=== PATIENT | female | born 1990 | race Caucasian/White ===

== ENCOUNTER 2022-06-18 08:14 | Emergency (ER) | payer BC, SELFPAY ==
[2022-06-18 08:20] VITALS: BP 130/74; PULSE 98; RESP 20; TEMP 37.6; O2SAT 97; BMI 33.6
--- NOTE | 2022-06-18 08:28 | EXP.UTC ---
Discharge Plan Disposition Patient Disposition: Home, Self-Care Condition: Good Prescriptions Prescriptions: New methylprednisolone 4 mg Tablets,Dose Pack 4 mg PO DIRECTED Qty: 21 0RF mvomuvqnigcuivw-fequrmbpr-MC [Bromfed DM] 2-30-10 mg/5 mL Syrup 5 ml PO Q6H PRN (Reason: Cough) Qty: 240 0RF ondansetron 4 mg Tablet,Disintegrating 4 mg PO Q8H PRN (Reason: Nausea) Qty: 12 0RF amoxicillin-pot clavulanate 875-125 mg Tablet 1 tab PO Q12H Qty: 20 0RF No Action amoxicillin 500 mg capsule 500 mg PO Q12H 10 Days Qty: 20 0RF escitalopram oxalate [Lexapro] 10 mg tablet 10 mg PO DAILY Referrals Follow up/Referrals: Nicola Godinez MD [Primary Care Provider] - See instructions Activity Restrictions/Add. Instructions Additional Instructions/Restrictions: Drink plenty of fluids. Take tylenol or ibuprofen for pain or fever. Take the medications as directed. Follow up with your regular doctor. GO TO THE ER FOR ANY WORSENING SYMPTOMS Clinical Impressions Clinical Impression: Strep throat Discharge ED Provider: Devyn Abernathy [facility] General Stated complaint: Sore throat Time Seen by Provider: 06/18/22 08:27 History of Present Illness Provider Complaint: She states that for the past 2 days she has had a sore throat, fever, chills, and malaise. She states that her throat is very sore. She denies shortness of breath and significant congestion. Related Data Home Medications Medication Instructions Recorded Confirmed escitalopram oxalate 10 mg tablet 10 mg PO DAILY 03/31/19 03/31/19 (Lexapro) Previous Rx's Medication Instructions Recorded amoxicillin 500 mg capsule 500 mg PO Q12H strep pharyngitis 03/31/19 10 days #20 caps amoxicillin 875 mg-potassium 1 tab PO Q12H #20 tabs 06/18/22 clavulanate 125 mg tablet smctjudqepnmfwb-worxhnrrpfsxekh-CF 5 ml PO Q6H PRN Cough #240 mL 06/18/22 2 mg-30 mg-10 mg/5 mL oral syrup (Bromfed DM) methylprednisolone 4 mg tablets in 4 mg PO DIRECTED #21 tabs 06/18/22 a dose pack ondansetron 4 mg disintegrating 4 mg PO Q8H PRN Nausea #12 tabs 06/18/22 tablet Allergies Allergy/AdvReac Type Severity Reaction Status Date / Time No Known Allergies Allergy Verified 01/17/18 15:47 [facility] Disclaimer: The information contained in this section may have been updated after the patient was seen, as this information can be updated by other users. Surgical History History of section Social History Smoking Status: Never smoker alcohol intake: current current occupational status: employed Travel in the last 8 weeks: None ROS Obtained: Yes All systems reviewed & no additional complaints except as documented Constitutional Constitutional: Reports chills and Reports fever(s) Eyes Eyes: Denies eye discharge ENT Ears, Nose, Mouth, and Throat: Reports as per HPI Cardiovascular Cardiovascular: Denies chest pain Respiratory Respiratory: Denies chest congestion and Reports cough Gastrointestinal Gastrointestingal: Reports nausea; Denies abdominal pain, constipation, cramping, diarrhea or vomiting Musculoskeletal Musculoskeletal: Denies arthralgias Integumentary/Breasts Skin/Breast: Denies rash Neurologic Neurologic: Denies paresthesias Physical Exam General General appearance: alert and in no apparent distress Head Head exam: atraumatic, normocephalic and normal inspection Eye Eye exam: Present normal appearance, PERRL and EOMI ENT ENT exam: Present normal exam, normal oropharynx, mucous membranes moist, TM's normal bilaterally and normal external ear exam Neck Neck exam: Present normal inspection, full ROM and trachea midline; Absent meningismus or lymphadenopathy Chest Chest inspection: Present normal inspection and symmetric chest wall rise; Absent tenderness Respiratory Respiratory exam:
[2022-06-18 08:33] LABS: UTC Strep Screen (Rapid) Positive (Negative)
[2022-06-18 08:34] VITALS: BP 130/74; PULSE 98; RESP 20; TEMP 37.6; O2SAT 97
== END 2022-06-18 09:10 | disposition home or self-care (01) ==
PROVIDERS: Emergency Provider Nurse Practitioner Family; PCP Internal Medicine Adolescent Medicine
DX: J02.0 Streptococcal pharyngitis (principal)
CPT/HCPCS: 87880; 99212; 99213; G0463

== ENCOUNTER → 2023-02-23 12:58 | Outpatient (CLI) | payer BC, SELFPAY | LOC: LAB.DROPOF 12:58 | PROVIDERS: PCP Physician Assistant; Visit Provider Physician Assistant | DX: N30.01 Acute cystitis with hematuria (principal); B96.29 Other Escherichia coli [E. coli] as the cause of diseases classified elsewhere | CPT/HCPCS: 87086; 87088; 87186 ==

== ENCOUNTER 2024-03-18 13:16 | Outpatient (CLI) | payer BC, SELFPAY ==
--- NOTE | 2024-03-18 13:22 | XR_ITS ---
FINAL REPORT TECHNIQUE: Chest PA & Lateral CLINICAL HISTORY: Shortness of breath, STATE COMPARISON: None FINDINGS: 2 views of the chest were performed. The heart size is normal. The mediastinum is within normal limits. There is no acute cardiopulmonary process. There are no pleural effusions. There is no pneumothorax. The bony thorax appears intact. IMPRESSION: No acute cardiopulmonary process. Reviewed, Interpreted and Dictated by Mao Johnson MD Transcribed by Dana Schaefer Authenticated and [facility]
[2024-03-18 13:51] LABS: Basophils % 0.4 % (0.1-2.0); Eosinophils # 0.1 K/mm3 (0.0-0.4); Eosinophils % 0.8 % (0.1-12.0); Hematocrit 30.4 % (37.0-47.0); Hemoglobin 9.5 g/dL (12.2-16.2); Lymphocytes # 1.2 K/mm3 (0.7-4.5); Mean Corpuscular HGB Conc 31.1 g/dL (31.8-35.4); Mean Corpuscular Hemoglobin 29.2 pg (27.0-31.2); Mean Corpuscular Volume 93.9 fl (81-99); Mean Platelet Volume 9.9 fl (7.4-10.4); Monocytes # 0.3 K/mm3 (0.1-1.0); Monocytes % 5.4 % (1.7-9.3); Neutrophils # 4.6 K/mm3 (1.8-7.8); Neutrophils % 74.4 % (37.0-80.0); Platelet Count 199 K/mm3 (142-424); Red Blood Count 3.24 M/mm3 (4.20-5.40); Red Cell Distribution Width 15.7 % (11.5-17.5); White Blood Count 6.1 K/mm3 (4.8-10.8)
[2024-03-18 13:59] LABS: Alanine Aminotransferase 25 U/L (12-78); Albumin Level 2.9 g/dl (3.5-5.0); Albumin/Globulin Ratio 1.1 (1.1-1.8); Alkaline Phosphatase 91 U/L (38-126); Anion Gap 5.8 mEq/L (5-15); Aspartate Amino Transferase 33 U/L (14-36); Bilirubin,Total 0.4 mg/dl (0.2-1.3); Blood Urea Nitrogen 15 mg/dl (7-17); Calcium 8.5 mg/dl (8.4-10.2); Carbon Dioxide 27 mmol/L (22.0-30.0); Chloride 108 mmol/L (98-107); Estimated Glomerular Filt Rate 44 ml/min (>60); GFR (African American) 53 ML/MIN (>60); Globulin 2.7 g/dL (1.3-3.2); Glucose 76 mg/dl (74-100); Potassium 3.8 mmoL/L (3.5-5.1); Sodium 137 mmol/L (136-145); Total Protein,Serum 5.6 g/dl (6.3-8.2)
[2024-03-18 14:04] LABS: D-Dimer 1.97 ug/mL (0.0-0.5)
[2024-03-18 14:09] LABS: NT Pro Brain Natriuretic Pep. 887 pg/mL (0-125)
== END 2024-03-18 23:59 | disposition home or self-care (01) ==
LOC: RAD 13:18
PROVIDERS: PCP Nurse Practitioner Family; Visit Provider Nurse Practitioner Family
DX: Z39.2 Encounter for routine postpartum follow-up (principal); R06.02 Shortness of breath
CPT/HCPCS: 36415; 71046; 80053; 83880; 85025; 85378

== ENCOUNTER 2025-04-04 09:37 | Outpatient (CLI) | payer BC, SELFPAY ==
--- OUTSIDE RECORDS SUMMARY | 2025-04-04 09:41 | XMS_ITS | Clinical Summary ---
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 Phone Marylou Graves SENIOR CARE PROVIDER Primary Care Provider [phone] Allergies No known active allergies Medications No known medications Active Problems Problem Noted Date Diagnosed Date Preeclampsia in period 03/19/2024 Resolved Problems Problem Noted Date Diagnosed Date Resolved Date Previous delivery a ffecting 03/07/2024 03/28/2024 08/10/2023 03/20/2024 Overview (02/01/2024): 2 prev c/s- repeat SCHEDULED EFW 33 wks 55%ile Previous section 06/14/2018 Immunizations Immunization Administration Dates Next Due Fluzone (or Fluarix & Flulaval for VFC) >6mos Tdap 02/01/2024 Family History Medical History Relation Name Comments No Known Problems Father Breast cancer Mother Krystal Wilcox Relation Name Status Comments Father Alive Mother Krystal Wilcox Alive Social History Tobacco Use Types Packs/Day Years Used Date Smoking Tobacco: Never Passive Smoke Exposure: Never Smokeless Tobacco: Never Tobacco Cessation:Counseling Given: Not Answered Alcohol Use Standard Drinks/Week Comments No 0 (1 standard drink = 0.6 oz pur e alcohol) [facility] Utilities Answer Date Recorded In the past 12 months has th e electric, gas, oil, or water company threatened to shut off services in your home? No 03/18/2024 AUDIT-C Answer Date Recorded Q1: How often do you have a drink containing alcohol? Never 03/18/2024 Q2: How many drinks containi ng alcohol do you have on a typical day when you are drinking? Patient does not drink Q3: How often do you have si x or more drinks on one occasion? Never 03/18/2024 Overall Financial Resource Strain (CARDIA) Answe r Date Recorded How hard is it for you to pa y for the very basics like food, housing, medical care, and heating? Not hard at all 03/18/2024 [facility] - Occupational Stress Questionnaire Answer Date Recorded Do you feel stress - tense, restless, nervous, or anxious, or unable to sleep at night because your mind is troubled all the time - these days? Not at all 03/18/2024 Exercise Vital Sign Answer Date Recorde d On average, how many days pe r week do you engage in moderate to strenuous exercise (like a brisk walk)? 0 days 03/18/2024 On average, how many minutes do you engage in exercise at this level? 0 min 03/18/2024 Hunger Vital Sign Answer Date Recorded Within the past 12 months, y ou worried that your food would run out before you got the money to buy more. Never true 03/18/20 24 Within the past 12 months, t he food you bought just didn't last and you didn't have money to get more. Never true 03/18/2024 PRAPARE - Transportation Answer Date Re corded In the past 12 months, has l ack of transportation kept you from medical appointments or from getting medications? No 06/2023 In the past 12 months, has l ack of transportation kept you from meetings, work, or from getting things needed for daily living? No 03/18/2024 Fletcher Depression Scale Answer Date Recorded Fletcher Depression Scale Total 6 04/24/2024 The thought of harming myself has occurred to me . Never 04/24/2024 Abuse Screen Answer Date Recorded Feels Unsafe at Home or Work/School no 03/18/2024 Feels Threatened by Someone no 06/2023 Does Anyone Try to Keep You From Having Contact with Others or Doing Things Outside Your Home? no 03/18/2024 Physical Signs of Abuse Present no 03/18/2024 Housing Stability Answer Date Recorded Current Living Arrangements home 06/2023 Potentially Unsafe Housing Conditions none 03/18/2024 Family and Community Support Answer Neville e Recorded If for any reason you need h elp with day-to-day activities such as bathing, preparing meals, shopping, managing finances, etc., do you get the help you need? I don't need any help 03/18/2024 How often do you feel lonely or isolated from those around you? Never 03/18/2024 Employment Answer Date Recorded Do you want help finding or keeping work or a job? I do not need or want help 03/18/2024 Disabilities Answer Date Recorded Difficulty Concentrating, Remembering or Making Decisions no 03/18/2024 Difficulty Managing Errands Independently no 03/18/2024 Education Answer Date Recorded Do you want help with school or training? For example, starting or completing job training or getting a high school diploma, GED or equivalent No 03/18/2024 Preferred Language Malian 03/18/2024 PHQ-2 Answer Date Recorded Retired PHQ-9: Brief Depression Severity Measure Score 0 03/18/2024 Comments No Sex and Gender Information Value Date Recorded Sex Assigned at Not on file Legal Sex Female 1:45 PM EDT Gender Identity Not on file Sexual Orientation Not on file Last Filed Vital Signs Vital Sign Reading Time Taken Comments Blood Pressure 114/70 04/24/2024 2:40 PM EST Pulse 67 03/20/2024 12:09 PM EDT Temperature 37.2 C (99 F) 03/20/2024 12:09 PM EDT Respiratory Rate 16 03/20/2024 12:0 9 PM EDT Oxygen Saturation 98% 03/19/2024 6:26 PM EDT Inhaled Oxygen Concentration - - Weight 83.8 kg (184 lb 12.8 oz) 04/24/2024 2:40 PM EST Height 160 cm (5' 3 ) 04/24/2024 2:40 PM EST Body Mass Index 32.74 04/24/2024 2:40 PM EST Plan of Treatment Upcoming Encounters Date Type Department Care Team (Late st Contact Info) Description 04/28/2025 3:30 PM EST Office Visit [facility] [address] [facility] [address] [place] [address] Carrie Diaz MD [address] [facility] [address] [place] [address] Health Maintenance Due Date Last Done Comments ANNUAL PHYSICAL 06/04/2018 Annual Gynecologic Pelvic an d Breast Exam 01/12/2024 01/10/2023 INFLUENZA VACCINE 01/16/2025 04/07/2020 PAP SMEAR 04/24/2027 04/24/2024, 11/18/2020, 10/29/2019 TDAP/TD VACCINES (2 - Td or Tdap) 01/31/2034 02/01/2024 HEPATITIS C SCREENING Completed 08/10/2023 , 11/01/2017 Pneumococcal Vaccine 0-49 Aged Out No longer eligible based on patient's age to complete this topic Procedures Procedure Name Priority Date/Time Associated Diagnosis Comments LIQUID-BASED PAP SMEAR WITH HPV GENOTYPING REGARDLESS OF INTERPRETATION, [facility] (FROY,COR,[facility]AD) Routine 04/24/2024 4:27 PM EST Screening for cervical cancer follow-up OBSTETRIC PANEL Routine 08/10/2023 9:58 AM EST care in first trimester from Last 3 Months or Most Recently Relevant to Health Maintenance Results * LIQUID-BASED PAP SMEAR WITH HPV GENOTYPING REGARDLESS OF INTERPRETATION (FROY,COR,MAD) (04/24/2024 4:27 PM EST) Pathologist [facility] Reference Lab Report [facility] [address] [place] [address] or [phone] Len Baxter M.D., Sheet Rock Taper Helper PATIENT NAME [facility]ATORY NO[facility] 127 MARIKA AYE HollisLee [id number] AGE SEX SSN CLIENT REF # [id number] 33 1990 F [id number] [address] [facility] [address] REQUESTING Sandy [place] [address] CARRIE DIAZ DATE COLLECTED DATE RECEIVED DATE REPORTED 04/24/2024 04/24/202404/25/2024 ThinPrep Pap with Cytyc Imaging DIAGNOSIS: Negative for intraepithelial lesion or malignancy Multiple factors can influence accuracy of Pap tests; therefore, screening at regular intervals is necessary for early cancer detection. SPECIMEN ADEQUACY: SATISFACTORY FOR EVALUATION Transformation zone is absent or insufficient. Partially obscuring blood is present. Sparse cellularity, minimal number of squamous cells available for evaluation. SOURCE OF SPECIMEN: CERVICAL/ENDOCERV ICAL SLIDES: 1 CLINICAL HISTORY: A Routine Tubal ligation Screening for cervical cancer follow-up HPV HR-HPV POOL: Negative The Aptima HPV assay is an in vitro nucleic acid amplification test for the qualitative detection of E6/E7 viral messenger RNA from 14 high risk types of HPV in cervical specimens. The high risk HPV types detected include: 16, 18, 31, 33, 35, 39, 45, 51, 52, 56, 58, 59, 66, 68 SALES ASSOCIATE FISHING: JUAN MANUEL CORTEZ (ASCP) CPT CODES: 53894, 04178 04/25/2024 11:28 AM EST [facility] ThinPrep Vial Cervix uteri structure / Unknown Collection / Unknown 04/24/2024 4:27 PM EST 04/24/2024 4:27 PM EST us Carrie Diaz MD PATHOLOGY/CYTOLOGY ORDERABLES Fi nal Result [facility]
[address] [place] [address], * Obstetric Panel (08/10/2023 9:58 AM EST) Hepatitis B Surface Ag Negative Negative [facility] Hep C Virus Ab Non Reactive Non Reactive [facility] Comment: HCV antibody alone does not differentiate between previously resolved infection and active infection. Equivocal and Reactive HCV antibody results should be followed up with an HCV RNA test to support the diagnosis of active HCV infection. RPR Non Reactive Non Reactive [facility] Rubella Antibodies, IgG 1.94 Immune >0.99 index [facility] Comment: Non-immune <0.90 Equivocal 0.90 - 0.99 Immune >0.99 ABO Type A [facility] Rh Factor Positive [facility] Comment: Please note: Prior records for this patient's ABO / Rh type are not available for additional verification. Antibody Screen Negative Negative [facility] WBC 8.5 3.4 - 10.8 x10E3/uL [facility] RBC 3.80 3.77 - 5.28 x10E6/uL [facility] Hemoglobin 11.9 11.1 - 15.9 g/dL [facility] Hematocrit 35.6 34.0 - 46.6 % [facility] MCV 94 79 - 97 fL [facility] MCH 31.3 26.6 - 33.0 pg [facility] MCHC 33.4 31.5 - 35.7 g/dL [facility] RDW 11.7 11.7 - 15.4 % [facility] Platelets 194 150 - 450 x10E3/uL [facility] Neutrophil Rel % 80 Not Estab. % [facility] Lymphocyte Rel % 13 Not Estab. % [facility] Monocyte Rel % 7 Not Estab. % [facility] Eosinophil Rel % 0 Not Estab. % [facility] Basophil Rel % 0 Not Estab. % [facility] Neutrophils Absolute 6.7 1.4 - 7.0 x10E3/uL [facility] Lymphocytes Absolute 1.1 0.7 - 3.1 x10E3/uL [facility] Monocytes Absolute 0.6 0.1 - 0.9 x10E3/uL [facility] Eosinophils Absolute 0.0 0.0 - 0.4 x10E3/uL [facility] Basophils Absolute 0.0 0.0 - 0.2 x10E3/uL [facility] Immature Granulocyte Rel % 0 Not Estab. % [facility] Immature Grans Absolute 0.0 0.0 - 0.1 x10E3/uL [facility] Blood 08/10/2023 9:58 AM EST 08/10/2023 Comment:[facility] - 08/11/2023 7:11 AM EST Performed at: 01 - [facility] [id number] Medical Imaging Technologist: Curt Jones PhD, Phone: [phone] us Carrie Diaz MD LAB BLOOD ORDERABLES Final Resul t [facility] [address] [place] [address], [place] [phone] [facility] [address] [place] [address], [place] [phone] from Last 3 Months or Most Recently Relevant to Health Maintenance Insurance [facility] [employer] [facility] [facility] [address] EMPLOYEE Advance Directives * CPR (Attempt to Resuscitate) (Latest Code Status on File) Date Activated Date Inactivated Comments 03/19/2024 2:27 PM 03/20/2024 3:04 PM Question Answer Comments Code Status (Patient has no pulse and is not breathing): CPR (Attempt to Resuscitate) Medical Interventions (Patie nt has pulse or is breathing): Full Support Level Of Support Discussed With: Patient * CPR (Attempt to Resuscitate) Date Activated Date Inactivated Comments 03/14/2024 3:46 PM 03/16/2024 3:42 PM Question Answer Comments Code Status (Patient has no pulse and is not breathing): CPR (Attempt to Resuscitate) Medical Interventions (Patie nt has pulse or is breathing): Full * CPR (Attempt to Resuscitate) Date Activated Date Inactivated Comments 03/14/2024 10:27 AM 03/14/2024 3:46 PM Question Answer Comments Code Status (Patient has no pulse and is not breathing): CPR (Attempt to Resuscitate) Medical Interventions (Patie nt has pulse or is breathing): Full Support Level Of Support Discussed With: Patient * CPR (Attempt to Resuscitate) Date Activated Date Inactivated Comments 06/14/2018 2:16 PM 06/17/2018 3:10 PM Question Answer Comments Code Status (Patient has no pulse and is not breathing): CPR (Attempt to Resuscitate) Medical Interventions (Patie nt has pulse or is breathing): Full * CPR (Attempt to Resuscitate) Date Activated Date Inactivated Comments 06/14/2018 8:01 AM 06/14/2018 2:16 PM Question Answer Comments Code Status (Patient has no pulse and is not breathing): CPR (Attempt to Resuscitate) Medical Interventions (Patie nt has pulse or is breathing): Full Care 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
[2025-04-04 10:03] LABS: Hematocrit 40.4 % (37.0-47.0); Hemoglobin 13.2 g/dL (12.2-16.2); Immature Granulocytes % 0.2 %; Mean Corpuscular HGB Conc 32.7 g/dL (31.8-35.4); Mean Corpuscular Hemoglobin 29.5 pg (27.0-31.2); Mean Corpuscular Volume 90.4 fl (81-99); Nucleated Red Blood Cells % 0 %; Platelet Count 176 K/mm3 (142-424); Red Blood Count 4.47 M/mm3 (4.20-5.40); Red Cell Distribution Width-SD 41.6 fL; White Blood Count 4.9 K/mm3 (4.8-10.8)
[2025-04-04 11:01] LABS: Alanine Aminotransferase 19 U/L (12-78); Albumin Level 4.7 g/dl (3.5-5.0); Albumin/Globulin Ratio 2.0 (1.1-1.8); Alkaline Phosphatase 52 U/L (38-126); Anion Gap 16.7 mEq/L (5-15); Aspartate Amino Transferase 19 U/L (14-36); Bilirubin,Total 0.9 mg/dl (0.2-1.3); Blood Urea Nitrogen 13 mg/dl (7-17); Calcium 9.4 mg/dl (8.4-10.2); Carbon Dioxide 24 mmol/L (22.0-30.0); Chloride 103 mmol/L (98-107); Cholesterol 164 mg/dl (140-200); Creatinine,Serum 0.80 mg/dl (0.52-1.04); Estimated Glomerular Filt Rate 83 ml/min (>60); GFR (African American) 101 ML/MIN (>60); Globulin 2.3 g/dL (1.3-3.2); Glucose 95 mg/dl (74-100); HDL Cholesterol 52 mg/dl (40-60); Potassium 4.7 mmoL/L (3.5-5.1); Sodium 139 mmol/L (136-145); Total Protein,Serum 7.0 g/dl (6.3-8.2); Triglycerides 62 mg/dl (30-150)
[2025-04-04 11:19] LABS: 25-OH Vitamin D, Total 42.3 ng/mL (30-100)
[2025-04-04 11:54] LABS: Vitamin B12 476 pg/mL (239-931)
== END 2025-04-04 23:59 | disposition home or self-care (01) ==
LOC: LAB 09:38
PROVIDERS: PCP Nurse Practitioner Family; Visit Provider Nurse Practitioner Family
DX: Z00.00 Encounter for general adult medical examination without abnormal findings (principal); E53.8 Deficiency of other specified B group vitamins; E55.9 Vitamin D deficiency, unspecified
CPT/HCPCS: 36415; 80053; 80061; 82306; 82607; 85025